=== PATIENT | female | born 1960 | race Caucasian/White ===

== ENCOUNTER 2020-08-06 16:32 | Outpatient (CLI) | payer OTHER, SELFPAY ==
--- NOTE | ~2020-08-06 | MM_ITS ---
EXAMINATION: MM screening sam BI w annabelle HISTORY: Screening mammogram TECHNIQUE: Craniocaudal and mediolateral oblique 3-D tomosynthesis images were obtained and synthetic 2-D images were generated. CAD analysis was submitted and interpreted. COMPARISON: No prior mammogram is available for comparison at this institution. BREAST PARENCHYMAL COMPOSITION: The breasts are heterogeneously dense, which may obscure small masses . FINDINGS: There are occasional bilateral microcalcifications including a suspicious cluster of groupe d microcalcifications situated posteriorly in the outer right breast (craniocaudal Tomosynthesis imag e 26/45). Bilateral diagnostic mammography with magnification views is recommended. Questionable 8 mm mass is suggested in the upper anterior right breast (MLO Tomosynthesis image 20/47 ); diagnostic right mammogram compression views and right breast ultrasound are recommended. Otherwise there is no evidence of suspicious mass, calcification, or architectural distortion to sugg est malignancy in either breast. IMPRESSION: 1. Bilateral microcalcifications and questionable anterior upper right breast mass 2. Bilateral diagnostic mammography and right breast ultrasound examination are recommended. BI-RADS Category 0: Incomplete: Needs additional imaging evaluation. Reviewed, dictated and finalized at location A. ERADICATOR IMPRESSION: 1. Bilateral microcalcifications and questionable anterior upper right breast m ass 2. Bilateral diagnostic mammography and right breast ultrasound examination are recommended. BI-RADS Category 0: Incomplete: Needs additional imaging evaluation.
== END 2020-08-06 16:33 | disposition home or self-care (01) ==
LOC: ANHIMG 16:39
DX: Z12.31 Encounter for screening mammogram for malignant neoplasm of breast (principal); R92.8 Other abnormal and inconclusive findings on diagnostic imaging of breast
CPT/HCPCS: 77063; 77067

== ENCOUNTER → 2020-08-26 09:44 | Outpatient (CLI) | payer OTHER, SELFPAY ==
--- NOTE | ~2020-08-26 | MMUS_ITS ---
EXAMINATION: MM diagnostic mammo unilat RT, US breast RT complete HISTORY: Croup microcalcifications, upper anterior right breast TECHNIQUE: Additional 3-D tomosynthesis images of the right breast were performed and synthetic 2-D i mages were generated. Magnification views of the right breast. CAD analysis was submitted and interpr eted. COMPARISON: 08/23/2020 bilateral digital screening mammogram MAMMOGRAM FINDINGS: There is a cluster of grouped granular appearing microcalcifications in the inner anterior aspect of the upper outer quadrant of the right breast. ULTRASOUND FINDINGS: At 11:00 7 cm from the nipple there is a 7 x 5 x 9 mm irregular hypoechoic solid mass with evidence of some calcifications as well as some posterior shadowing. This lesion is suspic ious and likely corresponds to the area of microcalcifications noted mammographically. IMPRESSION: 1. Upper outer quadrant grouped granular indeterminate microcalcifications with corresponding sonogra phic irregular 7 x 5 x 9 mm soft tissue mass at 11:00 7 cm from nipple 2. Ultrasound-guided biopsy is recommended. BI-RADS category 4, suspicious findings. Dr. Ontiveros telephoned the report and right breast ultrasound-guided biopsy recommendation on 08/26/2020 at 1157 hours to Nurse Sandra Reviewed, dictated and finalized at location A. L ANALYST IMPRESSION: 1. Upper outer quadrant grouped granular indeterminate microcalcifications with corresponding sonographic irregular 7 x 5 x 9 mm soft tissue mass at 11:00 7 c m from nipple 2. Ultrasound-guided biopsy is recommended. BI-RADS category 4, suspicious findings. Dr. Ontiveros telephoned the report and right breast ultrasound-guided biopsy recomm endation on 08/26/2020 at 1157 hours to Nurse Sandra
== END ==
DX: R92.8 Other abnormal and inconclusive findings on diagnostic imaging of breast (principal)
CPT/HCPCS: 76641; 77065

== ENCOUNTER 2020-09-11 10:35 | Outpatient (CLI) | payer BC, SELFPAY ==
--- NOTE | ~2020-09-11 | MMUS_ITS ---
EXAMINATION: US breast biopsy RT w image, MM post biopsy invasive RT DATE: 09/11/2020 12:37 (accession [id number]), 09/11/2020 12:43 (accession [id number]) INDICATION: Indeterminate right breast mass. Ultrasound-guided core biopsy is requested to evaluate for malignancy. TECHNIQUE AND FINDINGS: The risks and potential benefits of the procedure were discussed with the patient including bleeding and infection. A time out was performed. The skin of the right breast was prepared and draped in usua l sterile fashion. 1% lidocaine was used for superficial anesthesia. 1% lidocaine with epinephrine wa s used for deep anesthesia. A vacuum-assisted biopsy gun needle was advanced through to the outer edge of the region of interest from an inferior approach utilizing sonographic guidance. From this approach, the mass is surrounded by dense fibrous tissue and quality cores were difficult to obtain. A total of four tissue core sampl es were attempted. I then switched to a medial approach to the mass. Four 18-gauge cores were obtaine d then I obtained three additional samples using the vacuum-assisted biopsy needle. A tissue marker c lip was then placed at the biopsy site. Hemostasis was achieved. A sterile bandage was applied. The patient tolerated procedure well and there was no evidence of immediate complication. The patient was given verbal instructions to return to the Emergency Department in the event of severe breast pa in or rapid breast enlargement. A two view right breast mammogram was obtained to document tissue mar ker clip placement. IMPRESSION: 1. Successful ultrasound-guided vacuum-assisted biopsy of right breast mass with tissue marker placem ent. Reviewed, dictated and finalized at location A. OW CLERK IMPRESSION: 1. Successful ultrasound-guided vacuum-assisted biopsy of right breast mass wit h tissue marker placement.
== END 2020-09-11 10:36 | disposition home or self-care (01) ==
DX: N63.10 Unspecified lump in the right breast, unspecified quadrant (principal)
CPT/HCPCS: 19083; 88305; 88342; A4648